=== PATIENT | female | born 1955 | race Caucasian/White ===

== ENCOUNTER → 2020-06-21 | Outpatient (CLI) | payer BC ==
[~2020-06-21] MED LIST: ALBU90OI INH; ASPI81CH PO; ATEN25 PO; ATEN50 PO; AZIT250 PO; CHOL10002 PO; KRILL OIL500 MG; LUTEIN20 MG PO; NITR100CA PO; Neurontin 300300 MG PO; ONDA4ODT MM; OXYC5; PRAVASTATIN SOD10 MG PO
[2020-07-01 13:11] LABS: DOPAMINE, URINE <5 ug/L (Undefined)
== END | disposition home or self-care (01) ==
LOC: LAB SHORT 08:01
PROVIDERS: Internal Medicine Endocrinology, Diabetes & Metabolism
DX: I47.2 Ventricular tachycardia (principal)
CPT/HCPCS: 81050; 82384

== ENCOUNTER 2022-09-25 00:13 | Day surgery (SDC) | payer MEDICARE, OTHER | END 2022-09-25 12:05 | disposition home or self-care (01) | LOC: ATC 00:13 | DX: N12 Tubulo-interstitial nephritis, not specified as acute or chronic (principal); I10 Essential (primary) hypertension; E78.5 Hyperlipidemia, unspecified; K21.9 Gastro-esophageal reflux disease without esophagitis; Z88.2 Allergy status to sulfonamides; Z88.1 Allergy status to other antibiotic agents; Z16.12 Extended spectrum beta lactamase (ESBL) resistance | CPT/HCPCS: 96365; J1335 ==

== ENCOUNTER 2022-09-26 03:56 | Day surgery (SDC) | payer MEDICARE, OTHER | END 2022-09-26 10:30 | disposition home or self-care (01) | LOC: ATC 03:56 | DX: N12 Tubulo-interstitial nephritis, not specified as acute or chronic (principal); Z16.12 Extended spectrum beta lactamase (ESBL) resistance; E78.5 Hyperlipidemia, unspecified; I10 Essential (primary) hypertension; K21.9 Gastro-esophageal reflux disease without esophagitis | CPT/HCPCS: 96365; J1335 ==

== ENCOUNTER 2022-09-27 00:15 | Day surgery (SDC) | payer MEDICARE, OTHER | END 2022-09-27 14:22 | disposition home or self-care (01) | LOC: ATC 00:15 | DX: N12 Tubulo-interstitial nephritis, not specified as acute or chronic (principal); B96.29 Other Escherichia coli [E. coli] as the cause of diseases classified elsewhere; I10 Essential (primary) hypertension; K21.9 Gastro-esophageal reflux disease without esophagitis; E78.5 Hyperlipidemia, unspecified; J45.20 Mild intermittent asthma, uncomplicated; Z88.1 Allergy status to other antibiotic agents; Z88.2 Allergy status to sulfonamides; Z79.899 Other long term (current) drug therapy; Z79.01 Long term (current) use of anticoagulants | CPT/HCPCS: 96365; J1335 ==

== ENCOUNTER 2022-09-28 13:52 | Day surgery (SDC) | payer MEDICARE, OTHER | END 2022-09-28 14:41 | disposition home or self-care (01) | LOC: ATC 13:52 | DX: N12 Tubulo-interstitial nephritis, not specified as acute or chronic (principal); B96.29 Other Escherichia coli [E. coli] as the cause of diseases classified elsewhere; I10 Essential (primary) hypertension; K21.9 Gastro-esophageal reflux disease without esophagitis; E78.5 Hyperlipidemia, unspecified; J45.20 Mild intermittent asthma, uncomplicated; Z88.1 Allergy status to other antibiotic agents; Z88.2 Allergy status to sulfonamides; Z79.899 Other long term (current) drug therapy; Z79.01 Long term (current) use of anticoagulants | CPT/HCPCS: 96365; J1335 ==

== ENCOUNTER 2022-09-29 02:32 | Day surgery (SDC) | payer MEDICARE, OTHER | END 2022-09-29 11:01 | disposition home or self-care (01) | LOC: ATC 02:32 | DX: N12 Tubulo-interstitial nephritis, not specified as acute or chronic (principal); B96.20 Unspecified Escherichia coli [E. coli] as the cause of diseases classified elsewhere; I10 Essential (primary) hypertension; E78.5 Hyperlipidemia, unspecified; Z88.1 Allergy status to other antibiotic agents; Z88.2 Allergy status to sulfonamides | CPT/HCPCS: 96365; J1335 ==

== ENCOUNTER 2022-10-02 00:16 | Day surgery (SDC) | payer MEDICARE, OTHER ==
--- NOTE | 2022-10-02 11:00 | NUR ---
PT TO HAVE POWERGLIDE EVALUATED IN THE ER. HERNAN IS SWOLLEN AND WARM TO TOUCH. LEFT POWERGLIDE IV IN FOR ER TO EVALUATE. SEE EXTENEDED DWELL MANAGEMENT ASSESSMENT FOR BILAT ARM CIRCUMFERENCE MEASUREMENTS.
== END 2022-10-02 11:00 | disposition home or self-care (01) ==
LOC: ATC 00:16
DX: N12 Tubulo-interstitial nephritis, not specified as acute or chronic (principal); I10 Essential (primary) hypertension; E78.5 Hyperlipidemia, unspecified; K21.9 Gastro-esophageal reflux disease without esophagitis; B96.20 Unspecified Escherichia coli [E. coli] as the cause of diseases classified elsewhere
CPT/HCPCS: 96365; J1335

== ENCOUNTER 2022-10-03 01:05 | Day surgery (SDC) | payer MEDICARE, OTHER | END 2022-10-03 11:05 | disposition home or self-care (01) | LOC: ATC 01:05 | DX: N12 Tubulo-interstitial nephritis, not specified as acute or chronic (principal); B96.20 Unspecified Escherichia coli [E. coli] as the cause of diseases classified elsewhere; R78.81 Bacteremia | CPT/HCPCS: J1335 ==

== ENCOUNTER → 2023-01-03 | Outpatient (CLI) | payer MEDICARE, OTHER | LOC: LAB SHORT 18:27 → LAB 18:27 | DX: R30.0 Dysuria (principal) | CPT/HCPCS: 87086 ==